=== PATIENT | female | born 2000 | race Caucasian/White ===

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

== ENCOUNTER → 2019-03-24 | Outpatient (CLI) | payer OTHER ==
--- NOTE | 2019-03-24 15:27 | REP ---
Left knee series: Six views. History: Pain in the left knee. Findings: Six views of the left knee demonstrate normal bones, joints, and soft tissues. There is no evidence of erosive change or fracture. No evidence of joint effusion. Impression: Negative radiographs of the left knee. Electronically Signed by Rowdy Mackenzie MD 03/24/2019 03:19 P
== END ==
LOC: M ADAMS 11:19
PROVIDERS: ATTEND Nurse Practitioner Family
DX: M25.562 Pain in left knee (principal)

== ENCOUNTER 2021-02-11 12:00 | Emergency (ER) | payer BC ==
[~2021-02-11] VITALS: Ht 170.2 cm; Wt 135.4 kg
[2021-02-11] MEDS ORDERED: DEBL1TAB (12:15)
[2021-02-11 14:23] LABS: BASO % 0.5 % (0.0-1.0); EOS # 0.2 10^3/uL (0.0-0.5); HEMATOCRIT 41.7 % (36.0-47.0); HEMOGLOBIN 13.7 g/dl (12.0-15.5); LYMPH # 2.8 10^3/uL (1.5-5.0); LYMPH % 31.5 % (24.0-44.0); MEAN CORPUSCULAR HEMOGLOBIN 27.4 pg (27.0-33.0); MEAN CORPUSCULAR HGB CONC 32.9 g/dl (32.0-36.5); MEAN CORPUSCULAR VOLUME 83.4 fl (80.0-96.0); MONO # 0.5 10^3/uL (0.0-0.8); MONO % 5.9 % (2.0-8.0); NEUTROPHILS # 5.3 10^3/uL (1.5-8.5); NEUTROPHILS % 59.8 % (36.0-66.0); PLATELET COUNT, AUTOMATED 362 10^3/uL (150-450); WHITE BLOOD COUNT 8.8 10^3/uL (4.0-10.0)
[2021-02-11 14:50] LABS: BLOOD UREA NITROGEN 10 MG/DL (7-18); CALCIUM LEVEL 9.4 MG/DL (8.5-10.1); CARBON DIOXIDE LEVEL 30 MEQ/L (21-32); CHLORIDE LEVEL 106 MEQ/L (98-107); CREATININE FOR GFR 0.62 MG/DL (0.55-1.30); GLOMERULAR FILTRATION RATE > 60.0 (>60); GLUCOSE, FASTING 89 MG/DL (70-100); POTASSIUM SERUM 4.3 MEQ/L (3.5-5.1); SODIUM LEVEL 141 MEQ/L (136-145)
[2021-02-11] MEDS ORDERED: KETOROLAC 60MG 2ML VIAL IM ONE (17:15)
--- NOTE | 2021-02-11 18:14 | REP ---
INDICATION: heavy irregular bleeding, pelvic tenderness. COMPARISON: Pelvic ultrasound, 12/28/2018. TECHNIQUE: Multiple ultrasound images of the pelvis were obtained by transabdominal and transvaginal ultrasound. FINDINGS: The anteverted uterus measures 7.3 x 4.5 x 3.2 cm. The endometrium measures 7 mm in thickness. The right ovary measures 4.8 x 4.8 x 4.3 cm and contains a 3.4 cm in diameter unilocular cyst. The resistive index is 0.45. The left ovary measures 2.9 x 2.3 x 2.0 cm. The RI was not acquired. IMPRESSION: 1. Exam limited by patient body habitus. 2. Unilocular cyst right ovary. 3. The uterus and left ovary are unremarkable. <Electronically signed by Shane Sewell > 02/11/21 2008
[2021-02-11 19:16] VITALS: BP 141/90
== END 2021-02-11 19:17 | disposition home or self-care (01) ==
LOC: M ED 12:00
DX: N92.0 Excessive and frequent menstruation with regular cycle (principal); N83.201 Unspecified ovarian cyst, right side
CPT/HCPCS: 36415; 76830; 76856; 80048; 84702; 85025; 86850; 86900; 86901; 87210; 93976; 96372; 99284; J1885

== ENCOUNTER 2021-07-09 09:28 | Emergency (ER) | payer BC ==
[~2021-07-09] VITALS: Ht 170.2 cm; Wt 127.3 kg
[~2021-07-09 09:28] MED LIST changes: +DEBL1TAB
[2021-07-09] MEDS ORDERED: METF500T13 (09:44)
[2021-07-09 11:50] VITALS: O2SAT 98
[2021-07-09 12:33] LABS: BASO % 0.3 % (0.0-1.0); EOS # 0.2 10^3/uL (0.0-0.5); EOS % 1.5 % (0.0-3.0); HEMATOCRIT 42.4 % (36.0-47.0); HEMOGLOBIN 13.8 g/dl (12.0-15.5); LYMPH # 2.2 10^3/uL (1.5-5.0); LYMPH % 19.4 % (24.0-44.0); MEAN CORPUSCULAR HEMOGLOBIN 27.4 pg (27.0-33.0); MEAN CORPUSCULAR HGB CONC 32.5 g/dl (32.0-36.5); MEAN CORPUSCULAR VOLUME 84.3 fl (80.0-96.0); MONO # 0.5 10^3/uL (0.0-0.8); MONO % 4.5 % (2.0-8.0); NEUTROPHILS # 8.3 10^3/uL (1.5-8.5); NEUTROPHILS % 73.9 % (36.0-66.0); PLATELET COUNT, AUTOMATED 420 10^3/uL (150-450); RED BLOOD COUNT 5.03 10^6/uL (4.00-5.40); WHITE BLOOD COUNT 11.2 10^3/uL (4.0-10.0)
[2021-07-09] MEDS ORDERED: LIDOCAINE VISCOUS 2% SOLN 15ML UDC MT ONE (13:15)
[2021-07-09] MEDS ORDERED: KETOROLAC TROMETHAMINE 10 MG TAB PO ONE (13:15)
[2021-07-09] MEDS ORDERED: PENICILLIN V POTASSIUM 500 MG TAB PO ONE (13:25)
[2021-07-09 13:26] VITALS: BP 146/89
[2021-07-09] MEDS ORDERED: PENI500T PO (13:34)
[2021-07-09 13:46] LABS: ERYTHROCYTE SEDIMENTATION RATE 27 mm/hr (0-20)
== END 2021-07-09 13:43 | disposition home or self-care (01) ==
LOC: M ED 09:28
DX: J02.0 Streptococcal pharyngitis (principal); E28.2 Polycystic ovarian syndrome; Z79.84 Long term (current) use of oral hypoglycemic drugs

== ENCOUNTER 2021-11-21 20:30 | Emergency (ER) | payer BC ==
[~2021-11-21] VITALS: Ht 170.2 cm; Wt 136.3 kg
[~2021-11-21 20:30] MED LIST changes: +METF500T13; +PENI500T PO
[2021-11-21] MEDS ORDERED: FAMOTIDINE 20MG/2ML VIAL IVP ONE (21:15)
[2021-11-21] MEDS ORDERED: methylPREDNISolone 125MG 2ML VIAL IV ONE (21:15)
[2021-11-21 22:45] VITALS: BP 126/67
[2021-11-21] MEDS ORDERED: EPIP0.3I2 IM (22:48)
[2021-11-21] MEDS ORDERED: PRED20TA PO (22:48)
[2021-11-21] MEDS ORDERED: PEPC1TAB5 PO (22:48)
== END 2021-11-21 23:27 | disposition home or self-care (01) ==
LOC: M ED 20:30
DX: T78.04XA Anaphylactic reaction due to fruits and vegetables, initial encounter (principal); R21 Rash and other nonspecific skin eruption; Z91.018 Allergy to other foods; Z79.83 Long term (current) use of bisphosphonates; Z79.899 Other long term (current) drug therapy
CPT/HCPCS: 96374; 99284; J2930

== ENCOUNTER 2022-08-08 18:10 | Emergency (ER) | payer BC ==
[~2022-08-08] VITALS: Ht 170.2 cm; Wt 121.9 kg
[~2022-08-08 18:10] MED LIST changes: +EPIP0.3I2 IM; +PEPC1TAB5 PO; +PRED20TA PO
[2022-08-08] MEDS ORDERED: SEMA2.4P (18:18)
[2022-08-08] MEDS ORDERED: FLUO10CA18 (18:18)
[2022-08-08] MEDS ORDERED: DEBL1TAB (18:18)
[2022-08-08] MEDS ORDERED: NS 1,000 ML IV ONE (19:40)
[2022-08-08 19:51] LABS: BASO % 0.4 % (0.0-1.0); EOS # 0.2 10^3/uL (0.0-0.5); EOS % 1.8 % (0.0-3.0); HEMATOCRIT 40.9 % (36.0-47.0); HEMOGLOBIN 13.5 g/dl (12.0-15.5); LYMPH # 2.8 10^3/uL (1.5-5.0); LYMPH % 27.5 % (24.0-44.0); MEAN CORPUSCULAR HEMOGLOBIN 27.6 pg (27.0-33.0); MEAN CORPUSCULAR VOLUME 83.5 fl (80.0-96.0); MONO # 0.5 10^3/uL (0.0-0.8); MONO % 4.4 % (2.0-8.0); NEUTROPHILS # 6.8 10^3/uL (1.5-8.5); NEUTROPHILS % 65.7 % (36.0-66.0); PLATELET COUNT, AUTOMATED 365 10^3/uL (150-450); WHITE BLOOD COUNT 10.3 10^3/uL (4.0-10.0)
[2022-08-08 19:55] LABS: CK-MB VALUE MASS < 1.0 NG/ML (<3.6)
[2022-08-08 19:56] LABS: LIPASE 39 U/L (12-53)
[2022-08-08] MEDS ORDERED: ISOVUE-370 76% 100ML VIAL As Ordered ONE (19:56)
[2022-08-08 19:57] LABS: ALKALINE PHOSPHATASE 106 U/L (46-116); ALT/SGPT 20 U/L (7.0-40); AST/SGOT 14 U/L (<34); BILIRUBIN,DIRECT 0.1 MG/DL (<0.4); BILIRUBIN,TOTAL 0.4 MG/DL (0.3-1.2)
[2022-08-08 19:59] LABS: FREE T4 1.22 NG/DL (0.89-1.76)
[2022-08-08 20:01] LABS: CPK CREATINE PHOSPHOKINASE 39 U/L (34-145); MB/CK RELATIVE INDEX 2.56 (< OR =4)
[2022-08-08 21:00] LABS: INR 0.98; PROTHROMBIN TIME 13.2 SECONDS (12.5-14.5)
[2022-08-08 21:01] LABS: PARTIAL THROMBOPLASTIN TIME 31.8 SECONDS (24.8-34.2)
[2022-08-08] MEDS ORDERED: KETOROLAC 30 MG/ML 1ML VIAL IV ONE (21:30)
[2022-08-09 01:43] VITALS: BP 142/90; TEMP 97.8; O2SAT 99
== END 2022-08-09 01:46 | disposition home or self-care (01) ==
LOC: M ED 18:10
DX: R07.9 Chest pain, unspecified (principal); R25.1 Tremor, unspecified; F41.9 Anxiety disorder, unspecified; F32.A Depression, unspecified; F10.10 Alcohol abuse, uncomplicated; Z79.83 Long term (current) use of bisphosphonates; Z79.84 Long term (current) use of oral hypoglycemic drugs; Z79.899 Other long term (current) drug therapy
CPT/HCPCS: 70450; 71275; 72125; 80047; 80076; 82550; 82553; 83690; 83880; 84439; 84443; 84484; 84702; 85025; 85610; 85730; 93005; 96361; 96374; 99285; J1885; Q9967

== ENCOUNTER 2022-10-17 11:00 | Emergency (ER) | payer BC ==
[~2022-10-17] VITALS: Ht 170.2 cm; Wt 117.2 kg
[~2022-10-17 11:00] MED LIST changes: +FLUO10CA18; +SEMA2.4P
[2022-10-17] MEDS ORDERED: ALBU2.5V10 NEB (11:11)
[2022-10-17] MEDS ORDERED: FLUC150T9 PO (11:12)
[2022-10-17] MEDS ORDERED: NS 1,000 ML IV ONE (13:00)
[2022-10-17] MEDS ORDERED: diphenhydrAMINE 50MG/ML VIAL IV ONE (13:05)
[2022-10-17] MEDS ORDERED: FAMOTIDINE 20MG/2ML VIAL IVP ONE (13:05)
[2022-10-17] MEDS: ALBUTEROL SULFATE 2.5MG/0.5ML INH NEB SOLN NEB SCH ×3 (13:16→14:12)
[2022-10-17 13:27] LABS: BASO # 0.1 10^3/uL (0.0-0.2); BASO % 0.6 % (0.0-1.0); EOS # 0.4 10^3/uL (0.0-0.5); EOS % 2.9 % (0.0-3.0); HEMATOCRIT 44.8 % (36.0-47.0); HEMOGLOBIN 14.8 g/dl (12.0-15.5); LYMPH # 3.2 10^3/uL (1.5-5.0); MEAN CORPUSCULAR VOLUME 84.8 fl (80.0-96.0); MONO # 0.7 10^3/uL (0.0-0.8); MONO % 5.7 % (2.0-8.0); NEUTROPHILS # 8.2 10^3/uL (1.5-8.5); NEUTROPHILS % 65.1 % (36.0-66.0); PLATELET COUNT, AUTOMATED 535 10^3/uL (150-450); RED BLOOD COUNT 5.28 10^6/uL (4.00-5.40); WHITE BLOOD COUNT 12.6 10^3/uL (4.0-10.0)
[2022-10-17 14:01] LABS: BLOOD UREA NITROGEN 8 MG/DL (9-23); CALCIUM LEVEL 9.4 MG/DL (8.5-10.1); CARBON DIOXIDE LEVEL 28 MMOL/L (20-31); CHLORIDE LEVEL 101 MMOL/L (98-107); CREATININE FOR GFR 0.67 MG/DL (0.55-1.30); GLOMERULAR FILTRATION RATE > 60.0 (>60); GLUCOSE, FASTING 71 MG/DL (60-100); POTASSIUM SERUM 4.2 MMOL/L (3.5-5.1); SODIUM LEVEL 137 MMOL/L (136-145)
[2022-10-17] MEDS ORDERED: FAMOTIDINE 20 MG TAB PO ONE (14:10)
[2022-10-17] MEDS ORDERED: diphenhydrAMINE 25MG CAP PO ONE (14:10)
[2022-10-17] MEDS ORDERED: PEPC1TAB5 PO (14:11)
[2022-10-17 14:22] VITALS: BP 139/84; TEMP 97.7; O2SAT 99
== END 2022-10-17 14:23 | disposition home or self-care (01) ==
LOC: M ED 11:00
DX: T78.40XA Allergy, unspecified, initial encounter (principal); R21 Rash and other nonspecific skin eruption; J45.909 Unspecified asthma, uncomplicated; Z79.52 Long term (current) use of systemic steroids; Z79.899 Other long term (current) drug therapy

== ENCOUNTER 2023-06-03 08:39 | Emergency (ER) | payer BC ==
[~2023-06-03] VITALS: Ht 170.2 cm; Wt 131.5 kg
[~2023-06-03 08:39] MED LIST changes: +ALBU2.5V10 NEB; +FLUC150T9 PO
[2023-06-03 09:31] LABS: BASO % 0.6 % (0.0-1.0); EOS # 0.1 10^3/uL (0.0-0.5); EOS % 1.9 % (0.0-3.0); HEMATOCRIT 43.4 % (36.0-47.0); HEMOGLOBIN 14.4 g/dl (12.0-15.5); LYMPH # 2.3 10^3/uL (1.5-5.0); LYMPH % 31.8 % (24.0-44.0); MEAN CORPUSCULAR HEMOGLOBIN 28.1 pg (27.0-33.0); MEAN CORPUSCULAR HGB CONC 33.2 g/dl (32.0-36.5); MEAN CORPUSCULAR VOLUME 84.8 fl (80.0-96.0); MONO # 0.4 10^3/uL (0.0-0.8); NEUTROPHILS # 4.3 10^3/uL (1.5-8.5); NEUTROPHILS % 59.6 % (36.0-66.0); PLATELET COUNT, AUTOMATED 371 10^3/uL (150-450); RED BLOOD COUNT 5.12 10^6/uL (4.00-5.40); WHITE BLOOD COUNT 7.2 10^3/uL (4.0-10.0)
[2023-06-03 09:53] LABS: BLOOD UREA NITROGEN 11 MG/DL (9-23); CALCIUM LEVEL 9.2 MG/DL (8.5-10.1); CARBON DIOXIDE LEVEL 29 MMOL/L (20-31); CHLORIDE LEVEL 105 MMOL/L (98-107); CREATININE FOR GFR 0.62 MG/DL (0.55-1.30); GLOMERULAR FILTRATION RATE > 60.0 (>60); GLUCOSE, FASTING 91 MG/DL (60-100); POTASSIUM SERUM 4.1 MMOL/L (3.5-5.1); SODIUM LEVEL 137 MMOL/L (136-145)
[2023-06-03 09:56] LABS: THYROID STIMULATING HORMONE 2.488 uIU/ML (0.55-4.78)
[2023-06-03] MEDS: NS 1,000 ML IV ONE (10:10)
[2023-06-03 11:36] VITALS: BP 123/74; TEMP 98.4; O2SAT 100
== END 2023-06-03 11:43 | disposition home or self-care (01) ==
LOC: M ED 08:39
DX: I95.1 Orthostatic hypotension (principal); F41.9 Anxiety disorder, unspecified; F32.A Depression, unspecified; Z87.42 Personal history of other diseases of the female genital tract; Z88.8 Allergy status to other drugs, medicaments and biological substances; Z79.52 Long term (current) use of systemic steroids; Z79.899 Other long term (current) drug therapy